=== PATIENT | male | born 1995 | race Hispanic/Latino ===

== ENCOUNTER 2017-12-04 22:36 | Emergency (ER) | payer SELFPAY, OTHER ==
[2017-12-05 00:48] LABS: #Eosinphils 0.1 thou/uL (0.0-0.7); #Lymphocytes 2.1 thou/uL (1.20-3.40); #Monocytes 0.4 thou/uL (0.11-0.59); #Neutrophils 3.6 thou/uL (1.40-6.50); %Basophils 0.4 % (0.0-1.0); %Eosinophils 0.9 % (0.0-10.0); %Lymphocytes 33.9 % (21.0-51.0); %Neutrophils 58.8 % (42.0-75.0); Hemoglobin 15.9 g/dL (14.0-18.0); Mean Corpuscular Hemoglobin 28.8 pg (27.0-31.0); Mean Platelet Volume 7.8 fL (7.4-10.4); Platelet Count 264 thou/uL (130-400); RBC Distribution Width 12.3 % (11.5-14.5); Red Blood Cell (RBC) Count 5.53 mill/uL (4.70-6.10); White Blood Cell (WBC) Count 6.1 thou/uL (4.8-10.8)
--- NOTE | 2017-12-05 08:48 | RAD ---
LEFT FOOT 3 VIEWS: Date: 12/05/17 HISTORY: Left foot wound. Redness and inflammation. FINDINGS: Tarsals appear unremarkable. Metatarsals and phalanges unremarkable. No soft tissue abnormality ident ified. IMPRESSION: No acute findings. POS: ANTHONY
== END 2017-12-05 02:00 | disposition home or self-care (01) ==
LOC: ERS 22:36
DX: L03.032 Cellulitis of left toe (principal); E10.9 Type 1 diabetes mellitus without complications
CPT/HCPCS: 85025; 85652

== ENCOUNTER 2019-08-23 10:28 | Emergency (ER) | payer OTHER, SELFPAY | END 2019-08-23 12:52 | disposition home or self-care (01) | LOC: ERS 10:28 | DX: R05 Cough (principal); E10.9 Type 1 diabetes mellitus without complications | CPT/HCPCS: 36416; 87804; 99283 ==

== ENCOUNTER 2020-02-20 18:14 | Emergency (ER) | payer SELFPAY ==
[2020-02-21 16:05] LABS: SARS-CoV-2 MS2 Positive; SARS-CoV-2 N Gene Negative; SARS-CoV-2 S Gene Negative; SARS-CoV-2 by NAA Not Detected (NotDetected); SARS-CoV-2 orf1ab Negative
== END 2020-02-20 18:40 | disposition home or self-care (01) ==
LOC: ERS 18:14
DX: R52 Pain, unspecified (principal); R43.8 Other disturbances of smell and taste; Z20.828 Contact with and (suspected) exposure to other viral communicable diseases; E11.9 Type 2 diabetes mellitus without complications; Z79.4 Long term (current) use of insulin
CPT/HCPCS: 87635; 99283; U0003

== ENCOUNTER 2020-06-28 07:26 | Emergency (ER) | payer SELFPAY | END 2020-06-28 08:35 | disposition home or self-care (01) | LOC: ERS 07:26 | DX: M79.671 Pain in right foot (principal); E11.9 Type 2 diabetes mellitus without complications; Z79.4 Long term (current) use of insulin | CPT/HCPCS: 99281 ==

== ENCOUNTER 2022-03-14 22:06 | Emergency (ER) | payer OTHER, SELFPAY | END 2022-03-15 01:23 | disposition home or self-care (01) | LOC: ERS 22:06 | DX: S60.812A Abrasion of left wrist, initial encounter (principal); M54.2 Cervicalgia; M54.50 Low back pain, unspecified; E11.9 Type 2 diabetes mellitus without complications; V43.52XA Car driver injured in collision with other type car in traffic accident, initial encounter | CPT/HCPCS: 36416; 72040 ==

== ENCOUNTER 2023-06-17 08:09 | Emergency (ER) | payer SELFPAY | END 2023-06-17 08:57 | disposition home or self-care (01) | LOC: ERS 08:09 | DX: B34.9 Viral infection, unspecified (principal); E11.9 Type 2 diabetes mellitus without complications; Z79.4 Long term (current) use of insulin | CPT/HCPCS: 99283 ==

== ENCOUNTER 2024-07-04 13:37 | Emergency (ER) | payer SELFPAY | END 2024-07-04 15:18 | disposition home or self-care (01) | LOC: ERS 13:37 | DX: J10.1 Influenza due to other identified influenza virus with other respiratory manifestations (principal); E11.9 Type 2 diabetes mellitus without complications | CPT/HCPCS: 87428; 99283 ==